=== PATIENT | male | born 1955 | race Caucasian/White ===

== ENCOUNTER → 2017-11-05 10:09 | Outpatient (CLI) | payer OTHER, SELFPAY ==
--- NOTE | 2017-11-05 10:37 | CA_ITS ---
PROCEDURE: 2-D M-mode and color Doppler study INDICATIONS FOR THE TEST: Chest pain COPD Heart Murmur Tobacco Smokingex Palpitations Fatigue Syncope Edema Hypertension+Diabetes Mellitus+ Rheumatic Fever SOB+RODRIGUES+Obesity+Hyperlipidemia+ Family History HD Additional History cad with 3 cardiac stents PATIENT INFORMATION HEIGHT: 68 WEIGHT: 215 GENDER: Male B/P: 168/98 2-D/M-MODE INTERPRETATION: 2-D MEASUREMENTS OBSERVED VALUES IN CMS Right Ventricular Dimension (RVDd) 2.3 Interventricular Septum (Thickness)(IVsd) 1.3 Left Ventricular Internal Dimensions(LVIDd) 5.6 Left Ventricular Posterior Wall (Thickness)(LVPWd) 1.2 Aortic Root 3.1 Aortic Cusp Separation 2.1 Left Atrial Dimensions (LAD) 3.9 2D 1. Left atrium is normal size, left ventricle is normal size, there is mild concentric left ventricular hypertrophy, visually estimated ejection fraction 55% with no obvious regional wall motion abnormality. 2. The right atrium and right ventricle are normal size and contractility. 3. The aortic valve is minimally thickened and calcified leaflet continue to display mobility. 4. The mitral and tricuspid valve leaflets are minimally thickened 5. The pulmonic valve is poorly visualized. 6. No significant pericardial effusion noted. DOPPLER INTERROGATION: Doppler interrogation of the aortic, mitral and tricuspid valvular presence of mild mitral and tricuspid regurgitation, tricuspid and jet velocity is insufficient for calculation of the right ventricular systolic pressure, grade 1 diastolic dysfunction seen without tissue Doppler evidence of raised left atrial pressure. CONCLUSION: 1. Normal left ventricular size, preserved left ventricular systolic function, visually estimated ejection fraction 55% with no obvious regional wall motion abnormality, grade 1 diastolic dysfunction seen without tissue Doppler evidence of raised left atrial pressure. 2. Mild mitral and tricuspid regurgitation 3. No significant pericardial effusion noted.
== END ==
PROVIDERS: PCP Family Medicine; Visit Provider Nurse Practitioner
DX: R06.02 Shortness of breath (principal)
CPT/HCPCS: 93306

== ENCOUNTER → 2018-06-12 11:20 | Outpatient (POV) | payer MEDICARE, SELFPAY | PROVIDERS: PCP Family Medicine; Visit Provider Podiatrist | DX: Z00.00 Encounter for general adult medical examination without abnormal findings (principal) ==

== ENCOUNTER → 2018-07-02 10:48 | Outpatient (POV) | payer MEDICARE, SELFPAY | PROVIDERS: Visit Provider Podiatrist | DX: Z00.00 Encounter for general adult medical examination without abnormal findings (principal) ==

== ENCOUNTER → 2018-07-30 10:48 | Outpatient (POV) | payer MEDICARE, SELFPAY | PROVIDERS: Visit Provider Podiatrist | DX: Z00.00 Encounter for general adult medical examination without abnormal findings (principal) ==

== ENCOUNTER → 2019-04-22 07:48 | Outpatient (CLI) | payer MEDICARE, SELFPAY ==
--- NOTE | 2019-04-22 07:54 | CT_ITS ---
CT lumbar spine wo con INDICATION: Chronic low back pain ITS.REASON: CHRONIC PAIN ORDERING PHYSICIAN: Juliet Arevalo APRN PATIENT AGE: 63 years COMPARISON: 03/15/2013 TECHNIQUE: Axial images obtained with sagittal and coronal reformats. All CT scans at the facility use one or more dose reduction, viz: automated exposure control, ma/kV adjustment per patient size (including targeted exams where dose is matched to indication, i.e. head), or iterative reconstruction technique. FINDINGS: There is normal alignment. There is an epidural stimulator device which is at the T11 and T10 level. The wire of the device is coiled in the subcutaneous tissues posterior to T12. L1-L2: Unremarkable. L2-L3: Minimal anterior spurring with minimal bulging disc. L3-L4: Mild concentric bulging disc. L4-L5: Mild concentric bulging disc with mild facet and ligamentum flavum hypertrophy. The bulging disc which is eccentric toward the left within the lateral and foraminal region of the disc. This is not significant changed. There is bilateral foraminal narrowing L5-S1: Concentric bulging disc is eccentric toward the left with left-sided foraminal narrowing. There is some minimal associated central disc protrusion. There is mild bilateral foraminal narrowing. Mild facet and ligamentum flavum hypertrophy is also present. A single findings: Small umbilical hernia containing fat. Small bilateral renal cysts. IMPRESSION: Multilevel lumbar spondylosis with bulging disc along with facet and ligamentum flavum hypertrophy. PLEASE SEE ABOVE FOR DETAILED DESCRIPTION AT EACH LEVEL. Overall no significant change from 03/15/2013
== END ==
PROVIDERS: PCP Family Medicine; Visit Provider Nurse Practitioner
DX: G89.29 Other chronic pain (principal); M54.5 Low back pain
CPT/HCPCS: 72131

== ENCOUNTER → 2021-06-11 09:34 | Outpatient (CLI) | payer MEDICARE, SELFPAY | PROVIDERS: Visit Provider Ophthalmology | DX: Z01.812 Encounter for preprocedural laboratory examination (principal); Z11.52 Encounter for screening for COVID-19 | CPT/HCPCS: C9803; U0003; U0005 ==

== ENCOUNTER 2021-06-12 08:06 | Day surgery (SDC) | payer MEDICARE, SELFPAY ==
[2021-06-08 14:33] VITALS: BMI 31.6
[2021-06-12] VITALS (7 sets, daily range): BP systolic 147–154; BP diastolic 69–94; PULSE 67–71; RESP 14–18; TEMP 36.4–36.6; O2SAT 96–100
[2021-06-12 09:11] LABS: POC Glucose,Bedside 173 (70-110)
== END 2021-06-12 10:40 | disposition home or self-care (01) ==
LOC: OR 08:09
PROVIDERS: PCP Family Medicine; Visit Provider Ophthalmology
DX: H25.813 Combined forms of age-related cataract, bilateral (principal); H02.831 Dermatochalasis of right upper eyelid; H02.834 Dermatochalasis of left upper eyelid; H35.342 Macular cyst, hole, or pseudohole, left eye; E11.9 Type 2 diabetes mellitus without complications
CPT/HCPCS: 66984; 82962; V2632

== ENCOUNTER → 2021-06-25 09:18 | Outpatient (CLI) | payer MEDICARE, SELFPAY | PROVIDERS: Visit Provider Ophthalmology | DX: Z01.812 Encounter for preprocedural laboratory examination (principal); Z11.52 Encounter for screening for COVID-19 | CPT/HCPCS: C9803; U0003; U0005 ==

== ENCOUNTER 2021-06-26 07:05 | Day surgery (SDC) | payer MEDICARE, SELFPAY ==
[2021-06-21 12:54] VITALS: BMI 31.1
[2021-06-26] VITALS (8 sets, daily range): BP systolic 142–165; BP diastolic 69–88; PULSE 69–71; RESP 16–18; TEMP 36.4–36.6; O2SAT 96–100
[2021-06-26 07:53] LABS: POC Glucose,Bedside 155 (70-110)
== END 2021-06-26 09:11 | disposition home or self-care (01) ==
LOC: OR 07:07
PROVIDERS: PCP Family Medicine; Visit Provider Ophthalmology
DX: H25.813 Combined forms of age-related cataract, bilateral (principal); H02.831 Dermatochalasis of right upper eyelid; H02.834 Dermatochalasis of left upper eyelid; H35.342 Macular cyst, hole, or pseudohole, left eye; E11.9 Type 2 diabetes mellitus without complications; Z79.82 Long term (current) use of aspirin; Z79.899 Other long term (current) drug therapy; Z79.84 Long term (current) use of oral hypoglycemic drugs
CPT/HCPCS: 66984; 82962; V2632

== ENCOUNTER → 2021-12-11 13:32 | Outpatient (POV) | payer MEDICARE, SELFPAY | PROVIDERS: Visit Provider Dermatology | DX: Z00.00 Encounter for general adult medical examination without abnormal findings (principal) ==

== ENCOUNTER → 2023-04-02 10:00 | Outpatient (CLI) | payer MEDICARE, SELFPAY ==
--- NOTE | 2023-04-02 10:07 | XR_ITS ---
FINAL REPORT CLINICAL HISTORY: WHEEZING FINDINGS: PA and lateral views of the chest are obtained. There is no prior exam for comparison. The cardiac and mediastinal silhouettes are within normal limits. The lungs are clear. There is no pleural effusion, pneumothorax, or acute osseous abnormality. IMPRESSION: No radiographic evidence of acute cardiac or pulmonary disease. Reviewed, Interpreted and Dictated by Le Carter MD Transcribed by Geraldine Saldivar Authenticated and . [facility]
== END ==
PROVIDERS: PCP Internal Medicine; Visit Provider Internal Medicine
DX: R06.2 Wheezing (principal)
CPT/HCPCS: 71046

== ENCOUNTER → 2023-07-24 06:47 | Outpatient (CLI) | payer MEDICARE, SELFPAY ==
--- OUTSIDE RECORDS SUMMARY | 2023-07-24 06:52 | XMS_ITS | Patient Health Record ---
Author Name Unknown Organization [facility] Address [address] [place] [address] Care Team Providers Care Cargo Service Supervisor Name Role Phone Varinder Dow Primary Care Provider [phone] Narendra Inman Unavailable [phone] Israel Hebert DO Unavailable Unavailable ALLERGIES No Known Allergies REASON FOR REFERRAL No Information MEDICATIONS Medication SIG (Take, Route, Frequency, Duration) Notes Start Date End Date Status Jardiance Active Lisinopril-hydroCHLOROthiaz sarahy Active Omeprazole Active Cyclobenzaprine HCl Active oxyCODONE-Acetaminophen Not-Taking Atorvastatin Calcium Active metFORMIN HCl Active Metoprolol Tartrate Active Niacin ER (Antihyperlipidemic) Active Gabapentin Active HYDROcodone-Acetaminophen Active IMMUNIZATIONS Vaccine Route Administration Date Status Comme nts Influenza (split), 3 yrs and above Unknown 04/21/2023 A dministered Pneumococcal conjugate PCV 13 Unknown 04/21/2023 Admini stered SOCIAL HISTORY Tobacco Use: Social History Observation Description Date Details (start date - stop date) Never Smoker NA - NA Sex Assigned At : Social History Observation Description Sex Assigned At Unknown Tobacco Use
--- OUTSIDE RECORDS SUMMARY | 2023-07-24 06:52 | XMS_ITS | Continuity of Care Document ---
Author Name Unknown Organization [facility] Address [address] [address] Phone Care Team Providers Care Turntable Engineer Name Role Phone Danielle Eric APRN Unavailable Unavail able Allergies, Adverse Reactions, Alerts Substance Reaction Status Criticality No Known Allergies Active No Inform ation Medications Medication Instructions Dosage Effective Dates (start - stop) Status Comments Nitrostat 0.[address] 1 tablet by sublingual route every 5 minutes as needed for chest pain. Do not exceed 3 doses in 15 minutes. 0.4 MG - Active Nitrostat 0.[address] 1 tablet by sublingual route every 5 minutes as needed for chest pain. Do not exceed 3 doses in 15 minutes. as needed 0.4 MG - Active Aspir-81 mg tablet,delayed release take 1 tablet by oral route every day - Active Aleve 220 mg tablet take 1 tablet by ora l route every 12 hours as needed 220 MG - Active omeprazole 20 mg capsule,delayed release take 1 capsule by oral route every day 30 minutes to 1 hour before a meal 20 MG - Active metoprolol tartrate 50 mg tablet take 1
--- NOTE | 2023-07-24 06:57 | CT_ITS ---
FINAL REPORT TECHNIQUE: Thin section axial images were obtained through the lumbar spine without contrast. Sagittal and coronal reconstruction images were obtained from the axial data. Exam was performed using dose reduction techniques. CLINICAL HISTORY: POSTLAMINECTOMY SYNDROME OF LUMBAR REGION COMPARISON: 04/22/2019 FINDINGS: There has been interval posterior fusion of L4-S1. The hardware is intact. There is no acute fracture or acute malalignment of the lumbar spine. Spinal stimulator is incompletely imaged. There is no acute paraspinal abnormality. L1-2: Annular disc bulge. Mild central stenosis. Moderate bilateral foraminal narrowing. L2-3: Broad-based disc osteophyte complex. Moderate central stenosis. Moderate right greater than left foraminal narrowing. L3-4: Broad-based disc osteophyte complex. Moderate central stenosis. Moderate bilateral foraminal narrowing. L4-5: Postsurgical changes. No central stenosis. Disc osteophyte complex causes mild bilateral foraminal narrowing. L5-S1: No central stenosis. Disc osteophyte complex causes moderate bilateral foraminal narrowing. IMPRESSION: Interval posterior fusion L4-S1 without evidence of acute complication. Degenerative disc disease as above. Reviewed, Interpreted and Dictated by Le Carter MD Transcribed by Kassi Day Authenticated and [facility]
== END ==
PROVIDERS: PCP Family Medicine; Visit Provider Anesthesiology Pain Medicine
DX: M54.50 Low back pain, unspecified (principal); M96.1 Postlaminectomy syndrome, not elsewhere classified
CPT/HCPCS: 72131

== ENCOUNTER 2023-10-30 08:28 | Outpatient (CLI) | payer MEDICARE, SELFPAY ==
[2023-11-04 09:48] LABS: Miscellaneous Test SCANNED IMAGE
== END 2023-10-30 23:59 ==
LOC: LAB.DROPOF 08:29
PROVIDERS: PCP Family Medicine; Visit Provider Family Medicine
DX: R05.8 Other specified cough (principal)

== ENCOUNTER 2023-11-07 07:43 | Outpatient (CLI) | payer MEDICARE, SELFPAY ==
--- NOTE | 2023-11-07 07:48 | FL_ITS ---
FINAL REPORT CLINICAL HISTORY: ABD BLOATING DAP: 195.78 mGy Time: 1.43 FINDINGS: AIR CONTRAST UPPER GI HISTORY: Abdominal distention and weight gain. TECHNIQUE: The patient ingested thick and thin barium contrast. Effervescent crystals were also administered. Spot and overhead films were performed. A total of 42 images were saved. FINDINGS: The esophagus demonstrates no morphologic abnormalities. No mucosal defects are seen and motility appears normal. The stomach is of normal size, shape and position. The stomach did not coat well with oral contrast, therefore evaluation of the stomach is otherwise limited. The duodenal bulb and sweep appear unremarkable. There is gastroesophageal reflux to the midesophagus. 13 mm barium tablet passes easily through the esophagus and into the stomach. FLUROSCOPY TIME: 1 minute 43 seconds Radiation exposure in Total DAP: 195.78 uGym2 IMPRESSION: Limited evaluation of the stomach, but no gross abnormality identified. Gastroesophageal reflux. Otherwise, unremarkable upper GI. Reviewed, Interpreted and Dictated by Erwin Cadet MD Transcribed by Stephie Gleason PA-C Authenticated and [facility]
[2023-11-07] MEDS: BARIUM SULFATE(E-Z-AC);750ML BOTTLE 750 ML PO (08:34)
[2023-11-07] MEDS: BARIUM SULFATE (E-Z-HD 340GM);135ML BOTTLE 135 ML PO (08:34)
[2023-11-07] MEDS: E-Z-GASII EFFERVESCENT GRANULES;1PK 1 EACH PO (08:35)
== END 2023-11-07 23:59 ==
LOC: RAD 07:44
PROVIDERS: PCP Family Medicine; Visit Provider Family Medicine
DX: R14.0 Abdominal distension (gaseous) (principal)
CPT/HCPCS: 74246

== ENCOUNTER 2024-08-24 09:03 | Day surgery (SDC) | payer MEDICARE, SELFPAY ==
[2024-08-23 14:38] VITALS: BMI 31.1
[2024-08-24 09:32] VITALS: PULSE 80; RESP 17; TEMP 36.6; O2SAT 98
[2024-08-24] MEDS: TETRACAINE 0.5% OPTH SOL 15ML OP (09:37)
[2024-08-24] MEDS: TROPICAMIDE 1% OPTH SOLN 2ML OP (09:37)
[2024-08-24] MEDS: APRACLONIDINE 0.5% OPHTH SOLN 5ML OP (09:37)
[2024-08-24] MEDS: PHENYLEPHRINE 2.5% OPHTH SOLN 2ML OP (09:38)
[2024-08-24 13:34] LABS: POC Glucose,Bedside 224 (70-110)
== END 2024-08-24 10:37 | disposition home or self-care (01) ==
LOC: OUTP 09:04
PROVIDERS: PCP Family Medicine; Visit Provider Ophthalmology
PROC: (CPT 66821; principal; 2024-08-24 08:30)
DX: H26.492 Other secondary cataract, left eye (principal); E11.40 Type 2 diabetes mellitus with diabetic neuropathy, unspecified; Z79.84 Long term (current) use of oral hypoglycemic drugs
CPT/HCPCS: 66821; 82962